=== PATIENT | female | born 1955 | race Asian ===

== ENCOUNTER → 2016-12-26 | Outpatient (CLI) | payer OTHER | END | disposition home or self-care (01) | LOC: CFH 10:15 | PROVIDERS: ATTEND Specialist | DX: Z12.31 Encounter for screening mammogram for malignant neoplasm of breast (principal) | CPT/HCPCS: G0202 ==

== ENCOUNTER → 2018-01-15 | Outpatient (CLI) | payer OTHER | LOC: CFH 14:53 | PROVIDERS: ATTEND Specialist | DX: Z12.31 Encounter for screening mammogram for malignant neoplasm of breast (principal) | CPT/HCPCS: 76830; 77067 ==

== ENCOUNTER → 2021-01-23 | Outpatient (CLI) | payer OTHER ==
[~2021-01-23] MED LIST: CALC600T60 PO; CHOL10003 PO; CYAN25003 PO; LEVO88TA4 PO; METO-99 PO; VITA-74 PO
[2021-01-23 11:37] LABS: BASOPHILS % (AUTO) 1 % (0-1); EOSINOPHILS % (AUTO) 4 % (1-7); LYMPHOCYTES % (AUTO) 26 % (22-44); MEAN CORPUSCULAR HGB CONC 33.9 g/dL (32.4-35.8); MEAN PLATELET VOLUME 8.8 fL (7.4-10.4); MONOCYTES % (AUTO) 8 % (2-9); NEUTROPHILS % (AUTO) 62 % (42-75); PLATELET COUNT 226 x10^3/uL (130-400); RED BLOOD COUNT 4.98 x10^6/uL (3.82-5.3); RED CELL DISTRIBUTION WIDTH 13.9 % (9.6-15.2)
[2021-01-23 11:40] LABS: MD NO
== END | disposition home or self-care (01) ==
LOC: STAR 10:32
PROVIDERS: ATTEND Specialist
DX: Z01.818 Encounter for other preprocedural examination (principal); N95.0 Postmenopausal bleeding; Z20.822 Contact with and (suspected) exposure to COVID-19
CPT/HCPCS: 36415; 85025; 93005; U0003

== ENCOUNTER 2021-03-26 10:53 | Day surgery (SDC) | payer OTHER ==
[~2021-03-26] VITALS: Ht 160 cm; Wt 84.7 kg
[2021-03-26] MEDS ORDERED: LACTATED RINGERS 1,000 ML IV SCH (11:30)
[2021-03-26] MEDS ORDERED: CHLORHEXIDINE 15 ML UDC PO ONE (11:30)
[2021-03-26 11:51] VITALS: BP 168/84
[2021-03-26] MEDS ORDERED: FENTANYL PF 100 MCG/2ML ONE (11:53)
[2021-03-26] MEDS ORDERED: MIDAZOLAM 1 MG/ML, 2ML ONE (11:53)
[2021-03-26] MEDS ORDERED: PROPOFOL 10 MG/ML, 50ML ONE (12:03)
[2021-03-26] MEDS ORDERED: ONDANSETRON 2MG/ML, 2ML ONE (12:03)
[2021-03-26] MEDS ORDERED: PROPOFOL 10 MG/ML, 20ML ONE (12:03)
[2021-03-26] MEDS ORDERED: DEXAMETHASONE 4 MG/ML, 1ML ONE (12:03)
[2021-03-26] MEDS ORDERED: EPINEPHRINE 1 MG/ML, 1ML ONE (12:07)
[2021-03-26] MEDS ORDERED: BUPIVACAINE/PF 0.25% ONE (12:07)
[2021-03-26] MEDS ORDERED: ACETAMINOPHEN 325 MG TABLET PO PRN (12:30)
[2021-03-26] MEDS ORDERED: LABETALOL 5MG/ML, 20ML IV PRN (12:30)
[2021-03-26] MEDS ORDERED: METOPROLOL 1 MG/ML, 5ML IV PRN (12:30)
[2021-03-26] MEDS ORDERED: METOCLOPRAMIDE 5 MG/ML, 2ML IVPush PRN (12:30)
[2021-03-26] MEDS ORDERED: PROMETHAZINE 25 MG/ML, 1ML IVPush PRN (12:30)
[2021-03-26] MEDS ORDERED: hydrALAzine 20 MG/ML, 1ML IV PRN (12:30)
[2021-03-26] MEDS ORDERED: KETOROLAC 30 MG/1 ML IVPush PRN (12:30)
[2021-03-26] MEDS ORDERED: ONDANSETRON 2MG/ML, 2ML IVPush PRN (12:30)
[2021-03-26] MEDS ORDERED: FENTANYL PF 100 MCG/2ML IV PRN (12:30)
[2021-03-26] MEDS ORDERED: MEPERIDINE/PF 25MG/0.5ML IVPush PRN (12:30)
[2021-03-26] MEDS ORDERED: EPHEDRINE 50 MG/ML, 1ML IVPush PRN (12:30)
[2021-03-26] MEDS ORDERED: OXYcodone 5 MG/5 ML ORAL.SOL UDC PO PRN (12:30)
[2021-03-26] MEDS ORDERED: DIPHENHYDRAMINE 50 MG/ML, 1ML IVPush PRN (12:30)
[2021-03-26] MEDS ORDERED: HALOPERIDOL 5 MG/ML IV PRN (12:30)
== END 2021-03-26 14:15 | disposition home or self-care (01) ==
LOC: OUT 10:53
PROVIDERS: ATTEND Specialist
DX: N95.0 Postmenopausal bleeding (principal); N84.0 Polyp of corpus uteri; I10 Essential (primary) hypertension; E89.0 Postprocedural hypothyroidism; F32.9 Major depressive disorder, single episode, unspecified; F41.9 Anxiety disorder, unspecified; G43.909 Migraine, unspecified, not intractable, without status migrainosus; Z20.822 Contact with and (suspected) exposure to COVID-19; Z79.890 Hormone replacement therapy; Z79.899 Other long term (current) drug therapy; Z88.8 Allergy status to other drugs, medicaments and biological substances; Z91.013 Allergy to seafood
CPT/HCPCS: 58558; 87635; 88305; 93005; J0171; J1100; J2250; J2405; J2704; J3010; J7120